=== PATIENT | female | born 1965 | race Caucasian/White ===

== ENCOUNTER 2016-11-11 22:10 | Emergency (ER) | payer BC ==
[~2016-11-11] VITALS: Ht 170.2 cm; Wt 59.1 kg
[~2016-11-11 22:10] MED LIST: FLEXERIL10 MG PO; NAPROXEN500 MG PO; WELLBUTRIN SR200 MG PO
[2016-11-12 00:18] LABS: HEMATOCRIT 40.8 % (36.0-46.0); MCH 31.4 PG (29.0-34.0); MCHC 34.1 G/DL (30.0-36.0); MCV 92.3 FL (83-99); MEAN PLAT.VOLUME 10.4 uM^3 (9.5-12.4); PLATELET COUNT 222 K/uL (156-360); RBC DIS.WIDTH-CV 13.3 % (11.8-14.6); RBC DIS.WIDTH-SD 43.7 % (39-53); RED BLOOD COUNT 4.42 M/uL (3.80-5.20); WHITE BLOOD COUNT 4.4 K/uL (4.1-10.2)
[2016-11-12] MEDS ORDERED: ZOFRAN4 MG PO (00:29)
[2016-11-12] MEDS ORDERED: BENTYL10 MG PO (00:29)
[2016-11-12] MEDS ORDERED: WELLBUTRIN SR100 MG PO (00:37)
[2016-11-12 01:21] LABS: POTASSIUM 3.6 mEq/L (3.7-5.4); SODIUM 142 mEq/L (136-147)
[2016-11-12 01:25] LABS: TOTAL BILIRUBIN 0.2 mg/dL (0.0-1.0)
[2016-11-12 01:26] LABS: ALKALINE PHOSPHATASE 62 IU/L (3-129)
[2016-11-12 01:27] LABS: CHLORIDE 112 mEq/L (99-109); GFR ESTIMATE (CALCULATED) > 59 mL/min/
[2016-11-12 01:28] LABS: UREA NITROGEN (BUN) 10 mg/dL (9-23)
[2016-11-12 01:30] LABS: LIPASE 25 U/L (1.0-51.0)
[2016-11-12 01:36] LABS: GLUCOSE 132 mg/dL (70-99)
[2016-11-12 01:58] VITALS: BP 135/70
== END 2016-11-12 01:58 | disposition home or self-care (01) ==
LOC: EME 22:10 → EXP 22:10
PROVIDERS: Physician Assistant
DX: K52.9 Noninfective gastroenteritis and colitis, unspecified (principal); R42 Dizziness and giddiness
CPT/HCPCS: 80053; 83690; 85027; 99281; 99284; J2405; J7030